=== PATIENT | male | born 2000 | race Caucasian/White ===

== ENCOUNTER 2020-06-24 19:48 | Emergency (ER) | payer OTHER, SELFPAY ==
--- NOTE | 2020-06-24 | ECG_ITS ---
Test Reason : CHEST PAIN Blood Pressure : / mmHG Vent. Rate : 093 BPM Atrial Rate : 093 BPM P-R Int : 124 ms QRS Dur : 088 ms QT Int : 336 ms P-R-T Axes : 028 025 -25 degrees QTc Int : 417 ms Normal sinus rhythm with sinus arrhythmia Nonspecific T wave abnormality Abnormal ECG No previous ECGs available Referred By: Generic ED Physician Electronically Signed By:NAY WANG
--- NOTE | 2020-06-24 20:21 | PC.NURSE ---
called for ekg
[2020-06-24 21:07] VITALS: BP 149/74; PULSE 99; RESP 18; TEMP 37.1; O2SAT 99; BMI 30.9
== END 2020-06-25 00:37 | disposition left against medical advice (07) ==
PROVIDERS: Emergency Provider Student in an Organized Health Care Education/Training Program
DX: R07.9 Chest pain, unspecified (principal)
CPT/HCPCS: 93005; 99282

== ENCOUNTER 2020-10-21 16:48 | Emergency (ER) | payer OTHER, SELFPAY ==
--- NOTE | ~2020-10-21 | XR_ITS ---
EXAMINATION: LEFT HAND AND LEFT SHOULDER CLINICAL INFORMATION: Shoulder and hand pain COMPARISON: None TECHNIQUE: 3 views left hand, 3 views left shoulder FINDINGS: Left hand: No bone joint or soft tissue abnormality is seen. Left shoulder: No bone joint or soft tissue abnormality is seen. XR/XR hand LT min 3V IMPRESSION: No significant abnormality is detected.
--- NOTE | ~2020-10-21 | XR_ITS ---
EXAMINATION: LEFT HAND AND LEFT SHOULDER CLINICAL INFORMATION: Shoulder and hand pain COMPARISON: None TECHNIQUE: 3 views left hand, 3 views left shoulder FINDINGS: Left hand: No bone joint or soft tissue abnormality is seen. Left shoulder: No bone joint or soft tissue abnormality is seen. XR/XR shoulder LT min 2V IMPRESSION: No significant abnormality is detected.
[2020-10-21 16:52] VITALS: BP 168/80; PULSE 122; O2SAT 99
[2020-10-21 16:57] VITALS: BP 136/84; PULSE 100; RESP 18; TEMP 37.2; O2SAT 97; BMI 29.2
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
== END 2020-10-21 18:21 | disposition home or self-care (01) ==
PROVIDERS: Emergency Provider Internal Medicine
DX: S43.402A Unspecified sprain of left shoulder joint, initial encounter (principal); S63.602A Unspecified sprain of left thumb, initial encounter; V43.52XA Car driver injured in collision with other type car in traffic accident, initial encounter; Y93.89 Activity, other specified; Y92.414 Local residential or business street as the place of occurrence of the external cause; Y99.9 Unspecified external cause status
CPT/HCPCS: 73030; 73130; 99283; 99284

== ENCOUNTER → 2020-10-30 10:34 | Outpatient (BNVA) | payer OTHER, MEDICAID, SELFPAY | PROVIDERS: Visit Provider Physician Assistant ==

== ENCOUNTER 2022-12-13 22:02 | Emergency (ER) | payer OTHER, SELFPAY ==
[2022-12-13 22:07] VITALS: BP 140/80; PULSE 84; RESP 16; TEMP 36.4; O2SAT 95; BMI 29.2
[2022-12-13 22:21] LABS: Basophils Percent Auto 0.5 % (0-2); Eosinophils Absolute Auto 0.1 X10*3/uL (0.0-0.4); Eosinophils Percent Auto 2.7 % (0-4); Hematocrit 47.9 % (42.0-52.0); Hemoglobin 15.9 g/dl (14.0-18.0); Imm Gran Abs Auto 0.03 X10*3/uL (0.00-0.03); Imm Gran Pct Auto 0.7 % (0.0-0.4); Lymphocytes Absolute Auto 1.4 X10*3/uL (1.2-4.9); Lymphocytes Percent Auto 33.4 % (20-40); MANUAL DIFF FLAG SCAN; Mean Corpuscular HGB Conc 33.2 g/dl (31.0-36.0); Mean Corpuscular Hemoglobin 27.7 pg (27.0-33.0); Mean Corpuscular Volume 83.6 fL (80.0-98.0); Mean Platelet Volume 9.6 fL (9.4-12.4); Monocytes Percent Auto 23.7 % (2-11); Neutrophils Absolute Auto 1.6 x10*3/uL (2.0-8.3); Platelet Count 232 X10*3/uL (160-400); Red Blood Count 5.73 X10*6/uL (4.60-5.80); Red Cell Distribution Width 11.9 % (11.0-16.0); SCAN SMEAR FLAG 1; White Blood Count 4.1 X10*3/uL (4.8-10.8)
[2022-12-13 22:49] LABS: Alanine Aminotransferase 23 U/L (0-40); Albumin Level 4.4 g/dL (3.5-5.0); Alkaline Phosphatase 71 U/L (39-117); Anion Gap 13 (12-20); Aspartate Amino Transferase 20 U/L (5-37); Bilirubin Total 0.4 mg/dL (0.0-1.0); Blood Urea Nitrogen 17 mg/dL (9-16); Calcium 9.6 mg/dL (8.4-10.2); Carbon Dioxide 24 mmol/L (22-29); Chloride 105 mmol/L (96-108); Creatinine Clr Calc Pharmacy 111.3; Estimated Glomerular Filt Rate > 60; Glucose Random 85 mg/dL (60-115); Lipase 17 U/L (8-78); Potassium 3.9 mmol/L (3.3-5.1); Sodium 138 mmol/L (135-145); Total Protein 7.6 g/dL (6.5-8.0)
[2022-12-13 22:54] LABS: SLIDE REVIEW VERIFIED
--- NOTE | 2022-12-13 23:37 | ED.GENADULT ---
HPI - General Adult General Chief complaint: Nausea/Vomiting/Diarrhea Stated complaint: abd pain Time Seen by Provider: 12/13/22 23:37 Source: patient Mode of arrival: ambulatory Limitations: no limitations History of Present Illness HPI narrative: Patient is a 22 year old assigned male at with no reported medical history presenting to the emergency department today with diarrhea and abdominal pain. Patient states that over the last 2 days he has had intermittent diarrhea and lower abdominal pain. Patient states that his pain is much better than it was and his diarrhea has now resolved. Patient denies any dizziness, lightheadedness, nausea, vomiting, fever, chills, blurry vision, double vision, loss of vision, chest pain, difficulty breathing, shortness of breath, back pain, night sweats, pain with urination, increased urinary frequency, increased urinary urgency, blood in his urine or stool, syncope or a near syncopal episode, recent trauma or falls, bowel incontinence, bladder incontinence, bowel retention, bladder retention, or any other complaints at this time. Onset (ago): day(s) (2) Location: abdomen Radiation: non-radiation Severity: mild Severity scale (1-10): 2 Quality: aching and dull Pain Consistency: intermittent Relieving factors: none Exacerbating factors: none Associated symptoms: denies other symptoms Treatments prior to arrival: none Related Data Previous Rx's Medication Instructions Recorded ibuprofen 600 mg tablet 600 mg PO Q6H PRN pain #20 tabs 10/21/20 Allergies Allergy/AdvReac Type Severity Reaction Status Date / Time fish derived [FISH] Allergy Unknown SWELLING Verified 12/13/22 22:06 Review of Systems Constitutional: Constitutional: Reports no additional constitutional complaints, Denies chills, Denies fever(s) and Denies night sweats Eyes: Eyes: Reports no additional eye complaints, Denies blurry vision, Denies change in vision, Denies diplopia, Denies eye discharge, Denies loss of vision and Denies eye pain ENT: Denies dizziness Cardiovascular: Cardiovascular: Reports no additional cardiovascular complaints, Denies chest pain, Denies lightheadedness, Denies Loss of Consciousness and Denies dyspnea Respiratory: Respiratory: Reports no additional respiratory complaints and Denies dyspnea Gastrointestinal: Gastrointestinal: Reports no additional gastrointestinal complaints, Reports abdominal pain, Denies melena, Denies hematochezia, Denies change in bowel habits, Denies change in stool character and Reports diarrhea Genitourinary: Genitourinary: Reports no additional male genitourinary complaints, Denies hematuria, Denies oliguria, Denies difficulty urinating, Denies dysuria, Denies urinary frequency, Denies urinary hesitancy, Denies urinary incontinence and Denies urinary urgency Musculoskeletal: Musculoskeletal: Reports no additional musculoskeletal complaints, Denies numbness and Denies tingling Neurologic: Denies dizziness, Denies loss of vision, Denies numbness and Denies tingling Psychiatric: Psychiatric: Reports no additional psychiatric complaints Endocrine: Endocrine: Reports no additional endocrine complaints Hematologic/Lymphatic: Hematologic/Lymphatic: Reports no additional hematologic/lymphatic complaints Allergic/Immunologic: Allergic/Immunologic: Reports no additional allergic/immunologic complaints PMFSH Past Medical History Attestation statement: The following information was validated with the patient. Source: old records reviewed and nursing notes reviewed Medical History No known health problems Social History Social History Alcohol intake: never Advance Directives: No Advance Directives Information Provided: No Current occupation: right handed. Physical Exam ED Vital Signs: Vital Signs - 24 hr 12/13/22 22:07 Temperature 97.6 F Pulse Rate 84 Respiratory Rate 16 Blood Pressure 140/80 H Pulse Oximetry 95 Oxygen Delivery Method Room Air BMI result Body Mass Index 29.2 Const General: cooperative, no acute distress, alert and awake Nutritional Appearance: well nourished Orientation/consciousness: patient oriented x3 Limitations: no limitations [facility] Head: Yes normal to inspection and Yes atraumatic Ears: hearing grossly normal bilaterally and external ears normal General nose exam: Normal external nose present, no nasal discharge noted and no epistaxis Face and sinus: Yes normal facial exam, No abrasion and No laceration Mouth: Normal oral and palatal mucosa present, no drooling and no muffled voice Eyes General: appearance normal, both eyes and all related structures Periorbital: periorbital findings normal Eyelids: Yes eyelids normal Conjunctivae: conjunctivae normal Pupils: Equal, round and reactive pupils present EOM: EOMs intact bilaterally Neck Neck: Yes normal visual inspection, Yes full ROM and Yes no lymphadenopathy Chest Chest palpation & inspection: normal inspection of the chest Resp Effort & Inspection: normal respiratory effort and able to speak in complete sentences GI Inspection: Yes normal to inspection Palpation (GI): Soft to palpation, not firm, nontender, no guarding and not rigid Neuro General: patient oriented x3 and moves all extremities Cranial nerves: Yes Equal, round and reactive pupils present Cognition (Neuro): normal cognition Motor exam (neuro): 5/5 motor strength present throughout Sensory Exam: Normal double simultaneous stimulation for sensation Coordination: [id number] test normal Extrem General: Yes normal to inspection, Yes full ROM and Yes capillary refill normal Psych Appearance: grossly normal Mental Status: mental status grossly normal Affect: normal affect Attitude: cooperative Thought process: Normal thought process present Thought content: Normal thought content present Insight: Good insight present (Psych) Medical Decision Making Medical Decision Making MDM Narrative: Patient is a 22 year old assigned male at with no reported medical history presenting to the emergency department today with intermittent abdominal pain and diarrhea. Patient's physical exam was unremarkable. Patient's blood work was unremarkable. I explained my physical exam findings as well as all test results to the patient. I answered all questions asked by the patient. I stressed the importance of the patient taking his medication as prescribed. I stressed the importance of the patient following up with his primary care provider. I stressed the importance of the patient returning to the emergency department immediately if his symptoms were to worsen or if he were to develop any dizziness, shortness of breath, difficulty breathing, chest pain, blurry vision, loss of vision, nausea, vomiting, abdominal pain, fever, chills, back pain, or any other complaints. Patient verbalized agreement and understanding with this treatment plan and discharge. Differential Diagnosis Differential Diagnoses: The differential diagnosis associated with the presentation includes diarrhea, gastroenteritis Admission/Observation Consideration of admission/observation: Escalation of care including admission/observation considered Patient would have been admitted to the hospital had his work up had any findings where hospital admission was appropriate. Lab Data MDM Lab Attestation statement: I reviewed the patient's lab results. My interpretation of these studies and their corresponding values is that they are grossly normal. 12/13/22 22:15 12/13/22 22:15 Labs: Lab Results 12/13/22 12/13/22 Range/Units 22:15 22:15 WBC 4.1 L (4.8-10.8) X10*3/uL RBC 5.73 (4.60-5.80) X10*6/uL Hgb 15.9 (14.0-18.0) g/dl Hct 47.9 (42.0-52.0) % MCV 83.6 (80.0-98.0) fL MCH 27.7 (27.0-33.0) pg MCHC 33.2 (31.0-36.0) g/dl RDW 11.9 (11.0-16.0) % Plt Count 232 (160-400) X10*3/uL MPV 9.6 (9.4-12.4) fL Immature Gran % (Auto) 0.7 H (0.0-0.4) % Neut % (Auto) 39.0 L (45-73) % Lymph % (Auto) 33.4 (20-40) % [place] % (Auto) 23.7 H (2-11) % Eos % (Auto) 2.7 (0-4) % Baso % (Auto) 0.5 (0-2) % Lymph # (Auto) 1.4 (1.2-4.9) X10*3/uL [place] # (Auto) 1.0 (0.1-1.2) X10*3/uL Eos # (Auto) 0.1 (0.0-0.4) X10*3/uL Baso # (Auto) 0.0 (0.0-0.2) X10*3/uL Abs Immat Gran (auto) 0.03 (0.00-0.03) X10*3/uL Absolute Neuts (auto) 1.6 L (2.0-8.3) x10*3/uL Absolute Nucleated RBC 0.000 (0.0-0.012) X10*3/uL Nucleated RBC % (auto) 0.0 (0.0-0.2) /100WBC Smear Tech's Comments VERIFIED Sodium 138 (135-145) mmol/L Potassium 3.9 (3.3-5.1) mmol/L Chloride 105 (96-108) mmol/L Carbon Dioxide 24 (22-29) mmol/L Anion Gap 13 (12-20) BUN 17 H (9-16) mg/dL Creatinine 0.96 (0.5-1.4) mg/dL Estim Creat Clear Calc 111.3 Estimated GFR > 60 Random Glucose 85 (60-115) mg/dL Calcium 9.6 (8.4-10.2) mg/dL Total Bilirubin 0.4 (0.0-1.0) mg/dL AST 20 (5-37) U/L ALT 23 (0-40) U/L Alkaline Phosphatase 71 (39-117) U/L Total Protein 7.6 (6.5-8.0) g/dL Albumin 4.4 (3.5-5.0) g/dL Lipase 17 (8-78) U/L Discharge Plan Discharge Clinical Impression: Gastroenteritis Patient Disposition: Home, Self-Care Instructions: Gastroenteritis (DC) Additional Instructions: Follow up with your primary care provider. Return to the emergency department immediately if your symptoms worsen or if you develop any dizziness, shortness of breath, difficulty breathing, chest pain, blurry vision, loss of vision, nausea, vomiting, abdominal pain, fever, chills, back pain, or any other complaints. Prescriptions: No Action ibuprofen 600 mg tablet 600 mg PO Q6H PRN (Reason: pain) Qty: 20 0RF Referrals: [facility] [Provider Group] (Call to establish and follow up with a primary care provider. If you already have a primary care provider, please follow up with them.) [facility] [Provider Group] (Call to establish and follow up with a primary care provider. If you already have a primary care provider, please follow up with them.) [facility] [Provider Group] (Call to establish and follow up with a primary care provider. If you already have a primary care provider, please follow up with them.) Stand Alone Forms: Work/School Release Print Language: Indian
== END 2022-12-14 00:02 | disposition home or self-care (01) ==
PROVIDERS: Emergency Provider Emergency Medicine
DX: K52.9 Noninfective gastroenteritis and colitis, unspecified (principal); R10.30 Lower abdominal pain, unspecified
CPT/HCPCS: 36415; 80053; 83690; 85025; 99283; 99284

== ENCOUNTER 2023-01-04 11:04 | Emergency (ER) | payer OTHER, SELFPAY ==
[2023-01-04 11:37] VITALS: BP 117/73; PULSE 100; RESP 19; TEMP 36.6; O2SAT 100; BMI 29.2
--- NOTE | 2023-01-04 13:14 | ED.GENADULT ---
HPI - General Adult General Chief complaint: Wound/Laceration Stated complaint: Rectal pain Time Seen by Provider: 01/04/23 13:13 Source: patient Mode of arrival: ambulatory Limitations: no limitations History of Present Illness HPI narrative: Patient is a 22 year old assigned male at with no reported medical history presenting to the emergency department today with a lump on his upper buttocks. Patient states that over the last few days he noticed this bump over his buttock has continued to get bigger and more painful. Patient denies any dizziness, lightheadedness, abdominal pain, nausea, vomiting, fever, chills, blurry vision, double vision, loss of vision, chest pain, difficulty breathing, shortness of breath, back pain, night sweats, pain with urination, increased urinary frequency, increased urinary urgency, blood in his urine or stool, syncope or a near syncopal episode, recent trauma or falls, bowel incontinence, bladder incontinence, bowel retention, bladder retention, or any other complaints at this time. Onset (ago): day(s) Location: buttocks Radiation: non-radiation Severity: mild Severity scale (1-10): 3 Quality: aching and dull Pain Consistency: constant Relieving factors: none Exacerbating factors: none Associated symptoms: denies other symptoms Treatments prior to arrival: none Related Data Previous Rx's Medication Instructions Recorded ibuprofen 600 mg tablet 600 mg PO Q6H PRN pain #20 tabs 10/21/20 cephalexin 500 mg capsule 500 mg PO Q6H 7 days #28 caps 01/04/23 Allergies Allergy/AdvReac Type Severity Reaction Status Date / Time fish derived [FISH] Allergy Unknown SWELLING Verified 01/04/23 11:37 Review of Systems Constitutional: Constitutional: Reports no additional constitutional complaints, Denies chills, Denies fever(s) and Denies night sweats Eyes: Eyes: Reports no additional eye complaints, Denies blurry vision, Denies change in vision, Denies diplopia, Denies eye discharge, Denies loss of vision and Denies eye pain ENT: Denies dizziness Cardiovascular: Cardiovascular: Reports no additional cardiovascular complaints, Denies chest pain, Denies lightheadedness, Denies Loss of Consciousness and Denies dyspnea Respiratory: Respiratory: Reports no additional respiratory complaints and Denies dyspnea Gastrointestinal: Gastrointestinal: Reports no additional gastrointestinal complaints, Denies abdominal pain, Denies melena, Denies hematochezia, Denies change in bowel habits and Denies change in stool character Genitourinary: Genitourinary: Reports no additional male genitourinary complaints, Denies hematuria, Denies oliguria, Denies difficulty urinating, Denies dysuria, Denies urinary frequency, Denies urinary hesitancy, Denies urinary incontinence and Denies urinary urgency Musculoskeletal: Musculoskeletal: Reports no additional musculoskeletal complaints, Denies numbness and Denies tingling Integumentary/Breasts: Comments: swelling and pain to the upper buttock Neurologic: Denies dizziness, Denies loss of vision, Denies numbness and Denies tingling Psychiatric: Psychiatric: Reports no additional psychiatric complaints Endocrine: Endocrine: Reports no additional endocrine complaints Hematologic/Lymphatic: Hematologic/Lymphatic: Reports no additional hematologic/lymphatic complaints Allergic/Immunologic: Allergic/Immunologic: Reports no additional allergic/immunologic complaints PMFSH Past Medical History Attestation statement: The following information was validated with the patient. Source: old records reviewed and nursing notes reviewed Medical History No known health problems Social History Social History Alcohol intake: never Advance Directives: No Advance Directives Information Provided: Yes Current occupation: right handed. Physical Exam ED Vital Signs: Vital Signs - 24 hr 01/04/23 11:37 Temperature 98 F Pulse Rate 100 Respiratory Rate 19 Blood Pressure 117/73 Pulse Oximetry 100 Oxygen Delivery Method Room Air BMI result Body Mass Index 29.2 Const General: cooperative, no acute distress, alert and awake Nutritional Appearance: well nourished Orientation/consciousness: patient oriented x3 Limitations: no limitations [facility] Head: Yes normal to inspection and Yes atraumatic Ears: hearing grossly normal bilaterally and external ears normal General nose exam: Normal external nose present, no nasal discharge noted and no epistaxis Face and sinus: Yes normal facial exam, No abrasion and No laceration Mouth: Normal oral and palatal mucosa present, no drooling and no muffled voice Eyes General: appearance normal, both eyes and all related structures Periorbital: periorbital findings normal Eyelids: Yes eyelids normal Conjunctivae: conjunctivae normal Pupils: Equal, round and reactive pupils present EOM: EOMs intact bilaterally Neck Neck: Yes normal visual inspection, Yes full ROM and Yes no lymphadenopathy Chest Chest palpation & inspection: normal inspection of the chest Resp Effort & Inspection: normal respiratory effort and able to speak in complete sentences GI Inspection: Yes normal to inspection Skin Full body images: 1. small area of fluctuance, erythema, warmth, and swelling Neuro General: patient oriented x3 and moves all extremities Cranial nerves: Yes Equal, round and reactive pupils present Cognition (Neuro): normal cognition Motor exam (neuro): 5/5 motor strength present throughout Sensory Exam: Normal double simultaneous stimulation for sensation Coordination: [id number] test normal Extrem General: Yes normal to inspection, Yes full ROM and Yes capillary refill normal Psych Appearance: grossly normal Mental Status: mental status grossly normal Affect: normal affect Attitude: cooperative Thought process: Normal thought process present Thought content: Normal thought content present Insight: Good insight present (Psych) Medications Administered Discontinued Medications Generic Name Dose Route Start Last Admin Trade Name Freq PRN Reason Stop Dose Admin Lidocaine HCl 5 ml 01/04/23 13:22 01/04/23 13:26 Lidocaine Hcl 1 % Mpf 5 Ml Vial SUBCUT 01/04/23 13:23 5 ml ONCE ONE Administration Medical Decision Making Medical Decision Making MDM Narrative: Patient is a 22 year old assigned male at with no reported medical history presenting to the emergency department today with a lump to his upper buttock. Patient's physical exam was as noted in the physical exam portion of this chart showing an obvious pilonidal abscess. I explained my physical exam findings to the patient. I answered all questions asked by the patient. Patient's abscess was incised and drained, per procedure note, without incident. Minimal pus was released. I stressed the importance of the patient taking his medication as prescribed. I stressed the importance of the patient following up with his primary care provider and a general surgeon. I stressed the importance of the patient returning to the emergency department immediately if his symptoms were to worsen or if he were to develop any dizziness, shortness of breath, difficulty breathing, chest pain, blurry vision, loss of vision, nausea, vomiting, abdominal pain, fever, chills, back pain, or any other complaints. Patient verbalized agreement and understanding with this treatment plan and discharge. Differential Diagnosis Differential Diagnoses: The differential diagnosis associated with the presentation includes Pilonidal abscess Cellulitis Prescription Management I considered prescription management with: Antibiotic (patient prescribed antibiotic) Discharge Plan Discharge Clinical Impression: Pilonidal abscess Patient Disposition: Home, Self-Care Instructions: Pilonidal Cyst (ED), Abscess (ED) Additional Instructions: Follow up with your primary care provider and a general surgeon. Apply warm compresses to the area. Follow up with a general surgeon. Return to the emergency department immediately if your symptoms worsen or if you develop any dizziness, shortness of breath, difficulty breathing, chest pain, blurry vision, loss of vision, nausea, vomiting, abdominal pain, fever, chills, back pain, or any other complaints. Prescriptions: New cephalexin 500 mg capsule 500 mg PO Q6H 7 Days Qty: 28 0RF No Action ibuprofen 600 mg tablet 600 mg PO Q6H PRN (Reason: pain) Qty: 20 0RF [place] [facility] [place]Provider Group] (Call to establish and follow up with a general surgeon.) [facility] [place] Family Medicine [Provider Group] (Call to establish and follow up with a primary care provider. If you already have a primary care provider, please follow up with them.) [facility] [place] Primary Care[facility] [Provider Group] (Call to establish and follow up with a primary care provider. If you already have a primary care provider, please follow up with them.) [facility] [place] Primary Care,[facility] [Provider Group] (Call to establish and follow up with a primary care provider. If you already have a primary care provider, please follow up with them.) Stand Alone Forms: Work/School Release Interventions: ED Discharge Assessment Last Done: 01/04/23 14:10 Discharge Date/Time: 01/04/23 14:11 Print Language: Lithuanian
== END 2023-01-04 14:11 | disposition home or self-care (01) ==
PROVIDERS: Emergency Provider Emergency Medicine
DX: L05.01 Pilonidal cyst with abscess (principal); Z79.899 Other long term (current) drug therapy
CPT/HCPCS: 99282; 99284

== ENCOUNTER 2023-01-07 08:35 | Outpatient (AMB) | payer OTHER, SELFPAY ==
[2023-01-07 08:37] VITALS: BP 128/68; PULSE 79; BMI 27.6
--- NOTE | 2023-01-07 08:37 | A.OFFVIS_ITS ---
Intake Vital Signs 01/07/23 08:37 Height 5 ft 4 in Weight 161 lb BMI 27.6 BP 128/68 Blood Pressure Location Rt brachial Position Sitting Pulse 79 Intake Visit Reasons: pilonidal abscess Intake Note: This patient presents for [facility] emergency department follow-up for pilonidal abscess. Patient c/o; describes moderate pain, draining, has not started abx yet. 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 He has had this pain and swelling on the sacrococcygeal area for almost a week. He says he went to the ER 4 days ago. He says that an I and D was done but he was told that this was not enough. He has persistent pain and swelling on the area. He denies any fever or chills. He says he has had no similar episodes in the past. [facility] Medical History No known health problems Social History Alcohol intake: never Current occupation: right handed. Review of Systems Const Denies chills and Denies fever(s) Card Denies chest pain, Denies dyspnea and Denies dyspnea on exertion Resp Denies cough, Denies dyspnea and Denies dyspnea on exertion GI Denies hematochezia and Denies change in bowel habits Denies hematuria and Denies difficulty urinating Musc Denies back pain and Denies limited range of motion Neuro Denies focal weakness and Denies convulsions Psych Denies depression and Denies mood swings Physical Exam Const General: comfortable and no acute distress Orientation/consciousness: patient oriented x3 Neck Neck: Yes no lymphadenopathy Resp Auscultation: clear to auscultation bilaterally Cardio Rhythm: regular rhythm GI Palpation (GI): Soft to palpation, nontender and no guarding Back/Spine/Pelvis Other: Very tender induration, about 3 cm on the sacrococcygeal area to the left of the midline, no open sinus or drainage at this time Neuro General: patient oriented x3 Office Procedures I&D Drain Details: He was in prone position. Care was prepped and draped. Lidocaine 1% was used generously. I made a cruciate incision on the skin using blade 11. This was deepened as the cavity was not superficial. Fluid was drained this a and this appeared to be her purulent. I used a mustache to open up more of the cavity. I applied a light packing and dressings. He tolerated procedure well. There were no immediate complications. There was minimal blood loss. [id number] of Pilonidal Cyst, complex All charges added?: Procedure code (CPT) selection complete Assessment & Plan Assessment & Plan (1) Pilonidal abscess: Code(s): L05.01 - Pilonidal cyst with abscess Plan: He understands the technique of the incision and drainage under local anesthesia. He he was aware of the risks including but not limited to bleeding, infections, poor healing, as well as the benefits and alternatives. He had given consent. I and D was done under local anesthesia. There was fluid collection deep in the subcutaneous layer. I applied a light packing. I instructed him on wound care. I will see him in the office next week. He understands that we may need to proceed with formal excision down the line. I instructed him on warm compresses to the area and dressing changes. He is to complete his course of oral antibiotics as prescribed by the ED. Coding Level of Care Code New Pt Level 3 (11964) Diagnoses Pilonidal abscess L05.01 CPT Codes I&D Drain - Drain 4: [id number] of Pilonidal Cyst, complex ([id number])
== END 2023-01-07 09:04 | disposition home or self-care (01) ==
PROVIDERS: Visit Provider Surgery
DX: L05.01 Pilonidal cyst with abscess (principal)
CPT/HCPCS: 10081; 99203

== ENCOUNTER → 2023-01-07 08:35 | Outpatient (BNVA) | payer OTHER, SELFPAY | PROVIDERS: Visit Provider Surgery | DX: L05.01 Pilonidal cyst with abscess (principal) | CPT/HCPCS: 10081; 99202 ==

== ENCOUNTER 2023-01-14 13:39 | Outpatient (AMB) | payer OTHER, SELFPAY ==
--- NOTE | 2023-01-14 13:40 | A.OFFVIS_ITS ---
Intake Vital Signs 01/14/23 13:46 Height 5 ft 4 in Weight 165 lb BMI 28.3 BP 137/80 Blood Pressure Location Rt brachial Position Sitting Pulse 95 Intake Visit Reasons: s/p I&D pilonidal abscess, 1 week follow up Intake Note: This patient presents for a one week follow-up status post I&D pilonidal abscess. Patient denies complaints at this time. Distribution Sales Representative Required: No Accompanied by: Self / Same As Patient Allergies fish derived [FISH] Allergy (Unknown, Verified 01/14/23 13:47) SWELLING Medication List - Last Reconciled 01/14/23 by Billy Iverson MD cephalexin 500 mg PO Q6H 7 days ibuprofen 600 mg PO Q6H PRN HPI s/p I&D pilonidal abscess, 1 week follow up HPI Details 22-year-old males here for follow-up for a pilonidal abscess. I had done an I and D pilonidal abscess last January 07, 2023. He says he feels much better although he still has some residual pain . He denies any significant drainage from the I&D site. He does state that he feels much better overall. [facility] Medical History (Updated 01/14/23 @ 13:58 by Billy Iverson MD) No known health problems Sacrococcygeal pilonidal cyst with abscess Surgical History History of removal of cyst (~01/07/23) Social History Alcohol intake: never Current occupation: right handed. Review of Systems Const Denies chills and Denies fever(s) Card Denies chest pain, Denies dyspnea and Denies dyspnea on exertion Resp Denies cough, Denies dyspnea and Denies dyspnea on exertion GI Denies hematochezia and Denies change in bowel habits Denies hematuria and Denies difficulty urinating Musc Denies back pain and Denies limited range of motion Neuro Denies focal weakness and Denies convulsions Psych Denies depression and Denies mood swings Physical Exam Vital Signs: Last Vital Signs Pulse 95 01/14/23 13:46 BP 137/80 01/14/23 13:46 BMI result Body Mass Index 28.3 Const General: comfortable and no acute distress Resp Effort & Inspection: normal respiratory effort Cardio Rate: regular rate Back/Spine/Pelvis Other: I&D site with a little bit of residual induration, no fluctuance, no significant cellulitis, no active drainage Assessment & Plan Assessment & Plan (1) Sacrococcygeal pilonidal cyst with abscess: Code(s): L05.01 - Pilonidal cyst with abscess Plan: He had undergone an I&D last week. There was note of significant improvement. He still has a little bit of residual induration. I did tell him that it may be best to proceed with formal excision. I explained to the technique of this procedure under anesthesia in the operating room. I reviewed the risks including but not limited to bleeding, infections, poor healing, as well as the benefits and alternatives. He says that he is considering this but would like to discuss this with his work as he just started with this new job. He says he will call the office once he feels ready to schedule. He understands the risks of recurrence without excision. Coding Level of Care Code Est Pt Level 2 (95722) Diagnoses Sacrococcygeal pilonidal cyst with abscess L05.01
[2023-01-14 13:46] VITALS: BP 137/80; PULSE 95; BMI 28.3
== END 2023-01-14 13:56 | disposition home or self-care (01) ==
PROVIDERS: Visit Provider Surgery
DX: L05.01 Pilonidal cyst with abscess (principal)
CPT/HCPCS: 99212

== ENCOUNTER → 2023-01-14 13:39 | Outpatient (BNVA) | payer OTHER, SELFPAY | PROVIDERS: Visit Provider Surgery | DX: Z87.2 Personal history of diseases of the skin and subcutaneous tissue (principal) | CPT/HCPCS: 99212 ==

== ENCOUNTER 2024-05-08 09:06 | Emergency (ER) | payer OTHER, SELFPAY ==
[2024-05-08 09:18] VITALS: BP 131/85; PULSE 91; RESP 20; TEMP 36.6; O2SAT 98; BMI 29.1
--- NOTE | 2024-05-08 11:52 | ED_ITS ---
HPI - General Adult General Chief complaint: Skin/Abscess/Foreign Body Stated complaint: Lump on back Time Seen by Provider: 05/08/24 11:51 Source: patient Mode of arrival: ambulatory Limitations: no limitations History of Present Illness ED Provider: Mariah HPI narrative: Patient is a 23-year-old male presenting to the emergency department with complaint of pain and swelling at the top of his gluteal cleft. Reports prior I&D with Dr. Iverson in the past. Denies spontaneous drainage. Denies fevers, chills, body aches. complaint: pilonidal cyst Onset (ago): day(s) Severity: severe Quality: aching Pain Consistency: constant Associated symptoms: denies other symptoms Treatments prior to arrival: none Related Data Previous Rx's ?Medication ?Instructions ?Recorded ibuprofen 600 mg tablet 600 mg PO Q6H PRN pain #20 tabs 10/21/20 cephalexin 500 mg capsule 500 mg PO Q6H 7 days #28 caps 01/04/23 cephalexin 500 mg capsule 500 mg PO QID #28 caps 05/08/24 Allergies Allergy/AdvReac Type Severity Reaction Status Date / Time fish derived [FISH] Allergy Unknown SWELLING Verified 05/08/24 09:19 Review of Systems 2 Review of Systems: As per HPI Yes all other systems are reviewed and are negative Constitutional: Constitutional: Reports as per HPI [facility] Past Medical History Medical History (Updated 05/08/24 @ 12:17 by Katharine Lemus NP) Sacrococcygeal pilonidal cyst with abscess No known health problems Surgical History History of removal of cyst (~01/07/23) Social History Social History Alcohol intake: never Advance Directives: No Advance Directives Information Provided: Yes Do you have a plan to hurt others: No Plan Current occupation: right handed. Physical Exam ED Vital Signs: Vital Signs - 24 hr 05/08/24 09:18 Temperature 97.8 F Pulse Rate 91 Respiratory Rate 20 Blood Pressure 131/85 Pulse Oximetry 98 Oxygen Delivery Method Room Air BMI result Body Mass Index 29.1 Vital signs have been reviewed and appear to be correct. Blood pressure normal. Heart rate normal. Respiratory rate normal. Temperature normal. Oxygen saturation normal. Const General: cooperative, healthy appearing and no acute distress Orientation/consciousness: oriented to person, oriented to place, oriented to time and patient oriented x3 Limitations: no limitations HENMT Head: Yes normocephalic and Yes atraumatic Ears: external ears normal General nose exam: Normal external nose present Face and sinus: Yes face symmetric Mouth: oropharynx normal and moist mucous membranes Throat: Yes uvula midline Eyes Pupils: Equal, round and reactive pupils present Neck Neck: Yes normal visual inspection and Yes supple Resp Effort & Inspection: normal respiratory effort and able to speak in complete sentences Auscultation: clear to auscultation bilaterally Cardio Rate: regular rate Rhythm: regular rhythm Heart sounds: S1 normal heart sound present and S2 normal heart sound present GI Palpation (GI): Soft to palpation and nontender Auscultation: normoactive bowel sounds General: Yes no CVA tenderness Back/Spine/Pelvis Back: no CVA tenderness Skin Other: Exam chaperoned by KODAK [place] General skin exam: elasticity normal and turgor normal Full body images: 2 1. incision scar to left of gluteal cleft, induration and erythema noted, L>R, no fluctuance or drainage Neuro General: oriented to person, oriented to place, oriented to time, patient oriented x3, moves all extremities, no focal motor deficits and CN's II-XI intact bilaterally Cranial nerves: Yes Equal, round and reactive pupils present Cognition (Neuro): normal cognition Extrem General: Yes full ROM, Yes no pedal edema and Yes no calf tenderness Psych Mental Status: mental status grossly normal Affect: normal affect Thought process: Normal thought process present Medical Decision Making Medical Decision Making MDM Narrative: Patient is a 23-year-old male presenting to the emergency department with complaint of pain and swelling at the top of his gluteal cleft. On exam patient is awake, A+Ox3, VS WNL, afebrile, normal neurological exam without focal deficits, physical exam findings as above. Given reported symptoms and physical exam findings, initial differential includes abscess, pilonidal cyst, cellulitis. No induration on physical exam, I&D not indicated at this time. Will start patient on antibiotics and refer to Dr. Iverson. Discussed with patient that until he has cyst surgically removed, he can continue to have a recurrence of infection. Patient verbalized understanding of this and would like to follow up with Dr. Iverson for surgery. Return precautions discussed. Patient verbalized understanding of and agreement with plan. Differential Diagnosis Differential Diagnoses: The differential diagnosis associated with the presentation includes As per [facility] External Record Review External record reviewed: Inpatient record, Office record and Outpatient record Prescription Management I considered prescription management with: Antibiotic Discharge Plan Discharge Clinical Impression: Sacrococcygeal pilonidal cyst with abscess Patient Disposition: Home, Self-Care Instructions: Pilonidal Cyst (ED), Pilonidal Cyst Excision (DC) Additional Instructions: You were evaluated in the emergency department for an infection of your pilonidal cyst. You are being treated with a course of antibiotics, complete the full course as prescribed even if symptoms improve. We also recommend soaking the area in warm water for 10-15 minutes at a time several times daily. As discussed, until this cyst is surgically removed, these infections can continue to occur. Follow-up with Dr. Iverson to discuss excision (removal) of the cyst. Return to the emergency department if you develop increased swelling, redness, fevers or any other concerning symptoms. Prescriptions: New cephalexin 500 mg capsule 500 mg PO QID Qty: 28 0RF No Action ibuprofen 600 mg tablet 600 mg PO Q6H PRN (Reason: pain) Qty: 20 0RF cephalexin 500 mg capsule 500 mg PO Q6H 7 Days Qty: 28 0RF Referrals: Billy Iverson MD [Physician] - Print Language: South Korean
[2024-05-08 12:38] VITALS: BP 131/85; PULSE 91; RESP 20; TEMP 36.6; O2SAT 98
== END 2024-05-08 12:38 | disposition home or self-care (01) ==
PROVIDERS: Emergency Provider Emergency Medicine
DX: L05.01 Pilonidal cyst with abscess (principal)
CPT/HCPCS: 99282; 99283

== ENCOUNTER 2024-05-10 09:39 | Outpatient (AMB) | payer OTHER, SELFPAY ==
[2024-05-10 09:45] VITALS: BMI 29.1
--- NOTE | 2024-05-10 09:45 | MHC.OFFVIS ---
Vital Signs 05/10/24 09:45 Height 5 ft 5 in Weight 175 lb 0.012 oz BMI 29.1 Intake Visit Reasons: recurrent pilonidal cyst Intake Note: This patient presents for recurrent pilonidal cyst. Pt c/o; reports when he went to the ER on 05/08/24 his pain level was 10/10, reports since he has been taking his antibiotics his pain has improved. 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 I had actually seen him last year for this. In view of his current swelling, pain and drainage, had recommended excision in the operating room. He did want this done yet at that time because just started on a new job. He has had continuing problems so he wants to proceed schedule this excision. He said he was just recently started on antibiotics because of swelling. He denies any discharge. [facility] Medical History Sacrococcygeal pilonidal cyst with abscess No known health problems Surgical History History of removal of cyst (~01/07/23) Social History Alcohol intake: never Current occupation: right handed. Review of Systems Const Denies chills and Denies fever(s) Card Denies chest pain, Denies dyspnea and Denies dyspnea on exertion Resp Denies cough, Denies dyspnea and Denies dyspnea on exertion GI Denies hematochezia and Denies change in bowel habits Denies hematuria and Denies difficulty urinating Musc Denies back pain and Denies limited range of motion Neuro Denies focal weakness and Denies convulsions Psych Denies depression and Denies mood swings Physical Exam Vital Signs: BMI result Body Mass Index 29.1 Const General: comfortable and no acute distress Orientation/consciousness: patient oriented x3 Neck Neck: Yes no lymphadenopathy Resp Auscultation: clear to auscultation bilaterally Cardio Rhythm: regular rhythm GI Palpation (GI): Soft to palpation, nontender and no guarding Back/Spine/Pelvis Other: Induration with tenderness, about 2.5 cm to the left of the midline, without fluctuance, on the sacrococcygeal area consistent with a pilonidal cyst Neuro General: patient oriented x3 Assessment & Plan Assessment & Plan (1) Sacrococcygeal pilonidal cyst with abscess: Code(s): L05.01 - Pilonidal cyst with abscess Category: Medical Plan: He has this sacrococcygeal pilonidal cyst with recurrent problems with swelling, discharge and pain. I reviewed technique of excision of the pilonidal cyst under anesthesia. I explained the risks including but not limited to bleeding, infections, poor healing, postop pain, as well as the benefits and alternatives. I also explained to him what to expect postoperatively He says he understands and wants to proceed this time. Coding Level of Care Code Est Pt Level 3 (08704) Diagnoses Sacrococcygeal pilonidal cyst with abscess L05.01
== END 2024-05-10 09:56 | disposition home or self-care (01) ==
PROVIDERS: PCP Internal Medicine; Visit Provider Surgery
DX: L05.01 Pilonidal cyst with abscess (principal)
CPT/HCPCS: 99213

== ENCOUNTER → 2024-05-10 09:39 | Outpatient (BNVA) | payer OTHER, SELFPAY | PROVIDERS: PCP Internal Medicine; Visit Provider Surgery | DX: L05.01 Pilonidal cyst with abscess (principal) | CPT/HCPCS: 99212 ==

== ENCOUNTER 2024-06-12 09:51 | Outpatient (AMB) | payer OTHER, SELFPAY ==
--- NOTE | 2024-06-12 09:52 | MHC.OFFVIS ---
Vital Signs 06/12/24 09:59 Height 5 ft 5 in Weight 183 lb BMI 30.4 BP 148/80 H Blood Pressure Location Rt brachial Position Sitting Pulse 78 Intake Visit Reasons: pilonidal cyst recurrence Intake Note: Patient here c/o pilonidal cyst. Reports oozing for 2d. Ran out of Cephalexin rx. 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 He was recently given antibiotics for inflammation and presents here for further evaluation. He has had prior bouts of this before in fact has required incision and drainage in the past. Patient was scheduled to see his medical doctor for clearance on July 07. He would like to have this surgery for pilonidal cyst excision because of recurrence of his symptoms. Chart was reviewed and patient evaluated [facility] Medical History Sacrococcygeal pilonidal cyst with abscess No known health problems Surgical History History of removal of cyst (~01/07/23) Social History Alcohol intake: never Current occupation: right handed. Physical Exam Vital Signs: Last Vital Signs Pulse 78 06/12/24 09:59 BP 148/80 H 06/12/24 09:59 BMI result Body Mass Index 30.4 Chest Other: Chest breath sounds bilaterally, HS 1 in 2 GI Other: Abdomen is soft, benign Back/Spine/Pelvis Other: Pilonidal disease of cleft. No evidence of any active infection. Old scar from prior I&D site. No evidence of any redness or fluctuance at this time. Assessment & Plan Assessment & Plan (1) Pilonidal cyst of cleft: Code(s): L05.91 - Pilonidal cyst without abscess Category: Surgical Plan Risks, benefits, alternatives of pilonidal cyst excision were reviewed with the patient included but not limited to bleeding, infection, recurrence, numbness, pain, scarring, seroma formation, wound dehiscence and the patient wishes to proceed. Once he has been cleared medically, arrangements made for his procedure. As noted above, 07/07/2024 as scheduled for his medical evaluation. All questions answered. Coding Level of Care Code New Pt Level 5 (88025) Diagnoses Pilonidal cyst of cleft L05.91
[2024-06-12 09:59] VITALS: BP 148/80; PULSE 78; BMI 30.4
== END 2024-06-12 10:05 | disposition home or self-care (01) ==
PROVIDERS: PCP Internal Medicine; Visit Provider Surgery
DX: L05.91 Pilonidal cyst without abscess (principal)
CPT/HCPCS: 99204

== ENCOUNTER → 2024-06-12 09:51 | Outpatient (BNVA) | payer OTHER, SELFPAY | PROVIDERS: PCP Internal Medicine; Visit Provider Surgery | DX: L05.91 Pilonidal cyst without abscess (principal) | CPT/HCPCS: 99202 ==

== ENCOUNTER 2024-08-25 08:58 | Day surgery (SDC) | payer OTHER, SELFPAY ==
[2024-08-23 11:59] VITALS: BMI 29.1
--- NOTE | 2024-08-23 15:05 | HO.ANESPROP2 ---
Documented by User: Janae Paulino NP 08/23/24 15:09 HPI - Anesthesia Eval Consult details Narrative: 24yo M for Excision Pilonidal Cyst Sacrococcygeal Area PMFSH Active Problems Active Problems: All Active Problems Pilonidal cyst of juju cleft (Acute) Left thumb sprain (Acute) Left shoulder tendonitis (Acute) Sacrococcygeal pilonidal cyst with abscess (Acute) Past Medical History Medical History (Updated 08/25/24 @ 11:31 by Marta Jefferson MD) Migraines Sacrococcygeal pilonidal cyst with abscess Surgical History Surgical History (Updated 08/25/24 @ 11:33 by Marta Jefferson MD) H/O abdominal surgery History of removal of cyst (~01/07/23) Social History Social History Alcohol intake: never Patient Tobacco Use Status: Never used Tobacco Use of substances other than those prescribed or required for medical reasons: No Are you DNR?: No Advance Directives: No Advance Directives Information Provided: Yes Current occupation: right handed. Meds Allergies Allergy/AdvReac Type Severity Reaction Status Date / Time fish derived [FISH] Allergy Unknown SWELLING Verified 08/25/24 10:30 Exam Height,Weight and Vital Signs: Height 5 ft 5 in Weight 79.379 kg Assessment and Plan Assessment Anesthesia Assessment: Chart Reviewed Documented by User: Marta Jefferson MD 08/25/24 11:34 PMFSH Active Problems Active Problems: All Active Problems Pilonidal cyst of juju cleft (Acute) Left thumb sprain (Acute) Left shoulder tendonitis (Acute) Sacrococcygeal pilonidal cyst with abscess (Acute) Attempted drainage of pilonidal cyst in office Past Medical History Medical History (Updated 08/25/24 @ 11:31 by Marta Jefferson MD) Migraines Sacrococcygeal pilonidal cyst with abscess Family History Family history of problems with anesthesia: No Surgical History Surgical History (Updated 08/25/24 @ 11:33 by Marta Jefferson MD) H/O abdominal surgery History of removal of cyst (~01/07/23) History of Problems with Anesthesia: No Social History Social History Alcohol intake: never Patient Tobacco Use Status: Never used Tobacco Use of substances other than those prescribed or required for medical reasons: No Are you DNR?: No Advance Directives: No Advance Directives Information Provided: Yes Current occupation: right handed. Meds Allergies Allergy/AdvReac Type Severity Reaction Status Date / Time fish derived [FISH] Allergy Unknown SWELLING Verified 08/25/24 10:30 Exam Height,Weight and Vital Signs: Height 5 ft 5 in Weight 79.379 kg Vital Signs Temp Pulse Resp BP Pulse Ox O2 Del Method 08/25/24 10:44 98.8 F 80 16 130/79 96 Room Air Airway Mallampati Class: II TM Dist: >3cm Neck ROM: Full Loose/Missing/Broken Teeth: No (Denies broken, loose, missing teeth) Heart: RRR Lungs: CTAB Assessment and Plan Assessment Anesthesia Assessment: Anesthesia Plan Discussed and Chart Reviewed Final Anesthetic Review Family History of Problems with Anesthesia: No History of Problems with Anesthesia: No NPO: Yes ASA Class: II Final Preanesthetic Review: No Changes in Pt Med Stat, Meds/Allgs Chart Reviewed, Consent Obtained/Reviewed and Anes Risks/Benef Reviewed Patient Risk: Low Procedure Risk: Low Assessment/Block/Sedation in SS: Assess/Block/Sedation-SS Anesthetic Plan Anesthetic Plan: GA Disposition: Standard PACU
[2024-08-25] VITALS (8 sets, daily range): BP systolic 105–133; BP diastolic 58–84; PULSE 71–89; RESP 16–18; TEMP 36.1–37.1; O2SAT 93–99; BMI 29.1
[2024-08-25] MEDS: Lactated Ringers 1,000 ML 100 ML IVCONT (11:02)
--- NOTE | 2024-08-25 11:42 | P.HPSUR_ITS ---
Pre-Procedural Eval Section A - 24 Hr Update-Section A only Date of Service: 08/25/24 The patient is an INPATIENT: No Changes since office visit: No Cold of Flu in the past 2 weeks, No New Medical Problems, No Changes in Medication and No Patient answered all questions Section B - Complete if H&P > 30 days Chief Complaint: Pilonidal cyst with abscess Details of Present Illness: Has had recurrent drainage and swelling on the s acrococcygeal area Relevant Family History (Specify if Yes): No Relevant Social History: None Present Medications: see Short Stay Collaborative assessment Medical History: No relevant PMH Allergies: Allergies Allergy/AdvReac Type Severity Reaction Status Date / Time fish derived [FISH] Allergy Unknown SWELLING Verified 08/25/24 10:30 Review of Systems Sugical H&P ROS: Negative: Constitution, Cardiovascular and Respiratory Exam Surgical H&P Exam: Normal: Heart, Normal: Lungs and Normal: Abdomen Exam Comment: Multiple midline pits and a sinus in the gluteal cleft Plan Diagnosis/Plan: Unchanged I have reviewed the history and physical and performed a pertinent physical examination on my patient. No changes have occurred unless specified. Time Spent With Patient Time: Total time managing care of this patient today ____ minutes.
--- NOTE | 2024-08-25 12:23 | W.PM.OPN ---
Operative Note Operative Note Date of Service: 08/25/24 Narrative: Preop diagnosis: Pilonidal cyst, sacrococcygeal area Postop diagnosis: The same Procedure: Excision of pilonidal cyst, sacrococcygeal area Surgeon: Billy Iverson MD nursing home assistant administrator: ANGE Garcia The patient is a 24-year-old male with an area recurrent swelling and discharge in the sacrococcygeal region consistent with a pilonidal cyst. He understood the technique of excision under anesthesia. He was aware of the risks, benefits, and alternatives He was brought to the operating room. He was placed in prone position under general anesthesia via endotracheal tube. The buttocks were retracted with wide tape laterally. The sacrococcygeal area was prepped and draped in the usual sterile fashion. A surgical time-out was done. The patient received cefazolin 2 g IV preoperatively There was note of an area of induration with a sinus and midline pits in the gluteal cleft. I infiltrated the area with lidocaine 1%. I made an incision on the skin in elliptical fashion surrounding this area of induration using blade 15. This was carried down through the full-thickness of the skin and subcutaneous fat using electrocautery to excise this entire indurated and disease area. The area excised was about 6 cm x 3 cm in dimension I cauterized oozing areas. Once hemostasis was confirmed, I irrigated. I reapposed deep subcutaneous tissue with Polysorb 3-0 simple interrupted sutures. The subdermal layer was reapposed with Polysorb 3-0 simple interrupted sutures as well. Skin closure was achieved with nylon 3-0 simple interrupted sutures alternating with vertical mattress sutures. The area was then infiltrated with Marcaine 0.5% for postop analgesia. Dressings were applied. The procedure was completed The patient tolerated the procedure well. There were no immediate complications. Initial and final counts of sponges and instruments were correct. Estimated blood loss was about 30 cc. The patient was extubated without difficulty and transferred to the recovery room with stable vital signs.
== END 2024-08-25 14:00 | disposition home or self-care (01) ==
PROVIDERS: Visit Provider Surgery
PROC: (CPT 11771; principal; 2024-08-25 12:10)
DX: L05.01 Pilonidal cyst with abscess (principal); G43.909 Migraine, unspecified, not intractable, without status migrainosus; Z79.899 Other long term (current) drug therapy; Z79.1 Long term (current) use of non-steroidal anti-inflammatories (NSAID); Z98.890 Other specified postprocedural states
CPT/HCPCS: 11771; 88304; J0131; J0330; J0690; J1100; J1596; J1885; J2003; J2250; J2405; J2704; J2795; J3010

== ENCOUNTER → 2024-08-25 08:58 | Outpatient (BNV) | payer OTHER, SELFPAY | PROVIDERS: Visit Provider Surgery | DX: L05.01 Pilonidal cyst with abscess (principal) | CPT/HCPCS: 11771 ==

== ENCOUNTER 2024-09-07 11:07 | Outpatient (AMB) | payer OTHER, SELFPAY ==
--- NOTE | 2024-09-07 11:08 | MHC.OFFVIS ---
Intake Visit Reasons: S/P exc. pilonidal cyst Intake Note: This patient presents for post-op assessment status post excision pilonidal cyst. Pt c/o; reports no complaints. Seat Cover Installer Required: No Accompanied by: Self / Same As Patient Allergies fish derived [FISH] Allergy (Unknown, Verified 09/07/24 11:12) SWELLING HPI HPI S/P exc. pilonidal cyst: Details: He underwent excision of a pilonidal cyst from the sacrococcygeal area last 08/25/2024. He tolerated the procedure well. He currently denies significant complaints. [facility] Medical History Migraines Sacrococcygeal pilonidal cyst with abscess Surgical History History of surgical removal of pilonidal cyst (~08/25/24) H/O abdominal surgery History of removal of cyst (~01/07/23) Social History Alcohol intake: never Patient Tobacco Use Status: Never used Tobacco Current occupation: right handed. Review of Systems Const Denies chills and Denies fever(s) Card Denies chest pain, Denies dyspnea and Denies dyspnea on exertion Resp Denies cough, Denies dyspnea and Denies dyspnea on exertion GI Denies hematochezia and Denies change in bowel habits Denies hematuria and Denies difficulty urinating Musc Denies back pain and Denies limited range of motion Neuro Denies focal weakness and Denies convulsions Psych Denies depression and Denies mood swings Physical Exam Const General: comfortable and no acute distress Resp Effort & Inspection: normal respiratory effort Back/Spine/Pelvis Other: Excision site clean, dry, not infected, healing well sutures intact Assessment & Plan Assessment & Plan (1) Sacrococcygeal pilonidal cyst with abscess: Code(s): L05.01 - Pilonidal cyst with abscess Category: Medical Plan: Status post excision. He is doing very well. His incision is well healed. I removed all his sutures. I applied Steri-Strips He can follow up on a p.r.n. basis. His path report shows pilonidal disease. Coding Level of Care Code Global (01601) Diagnoses Sacrococcygeal pilonidal cyst with abscess L05.01
--- OUTSIDE RECORDS SUMMARY | 2024-09-07 14:19 | XMS_ITS | Clinical Summary ---
Author Organization [facility] [address] [place] [address] [place] [address] Phone Care Team Providers Care Acetylene Torch Solderer Name Role Phone Gaetano Bautista MD Primary Care Provider [phone] Allergies Active Allergy Reactions Criticality Noted Date Comments Fish Containing Products 04/29/2010 Developed rash Medications albuterol HFA (ProAir HFA) 90 mcg/actuation inhaler Inhale 2 Puffs into the lungs 4 times daily as needed for Cough or Wheezing. 08/24/2019 Active ibuprofen (ADVIL,MOTRIN) 800 mg tablet Take 1 tablet (800 mg total) by mouth 3 (three) times a day if needed for headaches. 90 tablet 1 07/07/2024 Active Active Problems Problem Noted Date Diagnosed Date Childhood asthma 05/24/2024 Migraine without status migrainosus, not intract able 02/26/2017 Known medical problems 05/13/2011 Overview (05/24/2024): Not getting good grades, 05/13/11 discipline issues, Will have IEP 05/09 regular classes good grades Phimosis 04/29/2010 Overview (05/24/2024): Seen by ped surg 05/28/10, circ scheduled but then decided with mother just to observe Encounters Date Type Department Care Team Description 07/07/2024 12:00 PM EST Office Visit Adult Medicine [facility] [address] [place], [place] [phone] Penelope Vieyra PA Routine history and physical examination of adult (Primary Dx); Acne, unspecified acne type; Migraine without status migrainosus, not intractable, unspecified migraine type; Pilonidal cyst 07/07/2024 Telephone Adult Medicine [address] [phone] Gaetano Bautista MD Forms/questionnaires from Last 3 Months Immunizations Name Administration Dates Next Due DTaP (Infanrix) 6wks to less than 7yo ,05/13/2000,05/16/1999,01/24,1998 [id number] (Pentacel) 2mo to less than 5yo 10/28/1999,05/16/1999,01/24/1999,11/05 H1N1 Inj Preservative Free 06/06/2009 HPV, Quadrivalent 09/12/2013 Hepatitis B Pediatric (Enger ix B; Recombivax HB) to less than 20 yo 06/14/1999,05/16/1999,1998 IPV Inactivated polio (Ipol) 6wks and older 01/29/2004,02/01/1999,01/24/1999,11/05 Influenza trivalent, 0.5mL, preservative free (Fluarix; FluLaval; Fluzone) ages 6mo and older (Afluria) 3 years and older 05/24/2012 MMR, measles mumps and rubel la Live (Priorix; M-M-R II) 12mo and older 08/03/2002,10/28/1999 Meningococcal MCV4P 05/13/2011 Pneumococcal Conjugate Vacci ne, 7 Valent 05/14/2003 Tdap Tetanus diptheria acell ular pertussis (Boostrix; Adacel) 7yo and older 04/29/2010 Varicella live (Varivax) 12m o and older 08/31/2008,10/28/1999 Surgical History Surgery Date Site/Laterality Comments OTHER SURGICAL HISTORY 5 w PROCEDURE: HISTORICAL PYLOROTOMY Medical History Medical History Date Comments Phimosis 04/29/2010 DX:Phimosis Pyloric stenosis DX:Pyloric sten osis; COMMENT: s/p surgery Allergic rhinitis DX:Allergic rh initis Childhood asthma DX:Childhood as thma Family History Medical History Relation Name Comments Other: healthy Father Other: healthy Mother Relation Name Status Comments Brother 1 Alive Brother 2 Alive Brother 3 Alive Father Alive Mother Alive kamran cadena Sister 1 Alive yoav nelson Sister 2 Alive conner philip Sister 3 Alive Sister 4 Alive Social History Tobacco Use Types Packs/Day Years Used Date Smoking Tobacco: Never Smokeless Tobacco: Never Alcohol Use Standard Drinks/Week Comments No 0 (1 standard drink = 0.6 oz pur e alcohol) Sex and Gender Information Value Date Recorded Sex Assigned at Not on file Legal Sex Male 11:37 PM EST Gender Identity Not on file Sexual Orientation Not on file 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 Not on file Not on file Not on file Obstetrics History Last Filed Vital Signs Vital Sign Reading Time Taken Comments Blood Pressure 130/60 07/07/2024 11:47 AM EST Pulse 78 07/07/2024 11:47 AM EST Temperature 36.7 ??C (98 ??F) 07/07/2024 11: 47 AM EST Respiratory Rate - - Oxygen Saturation 98% 07/07/2024 11: 47 AM EST Inhaled Oxygen Concentration - - Weight 83.3 kg (183 lb 11.2 oz) 025 11:47 AM EST Height - - Body Mass Index - - Plan of Treatment Upcoming Encounters Date Type Department Care Team (Late st Contact Info) Description 07/11/2025 9:00 AM EST Office Visit Adult Medicine [address] [phone] Gaetano Bautista MD [address] [place] [phone] Health Maintenance Due Date Last Done Comments Hepatitis B Vaccines (4 of 4 - 4-dose series) 07/11/1999 06/14/1999, 05/16/1999, 1998 Pneumococcal Vaccine: Pediatrics (0 to 5 Years) and At-Risk Patients (6 to 64 Years) (2 of 2 - PPSV23) 2004 05/14/2003 HPV Vaccines (2 - Male 3-dose series) 10/10/2013 09/12/2013 COVID-19 Vaccine ( season) 2024 HIV Screening 05/24/2024 Hepatitis C Screening 05/24/2024 Depression Screening 07/07/2025 07/07/2024 Social Influencers of Health Screening 07/07/2025 07/07/2024 HIB Vaccines Completed 10/28/1999, 04/28, 01/24/1999, Additional history exists MMR Vaccines Completed 08/03/2002, 10/28/1999 IPV Vaccines Completed 01/29/2004, 07/1999, 05/16/1999, Additional history exists Varicella Vaccines Completed 08/31/2008, 10/28/1999 DTaP,Tdap,and Td Vaccines Discontinued 2009, 01/29/2004, 05/13/2000, Additional history exists Meningococcal ACWY Vaccine Aged Out 05/13/2011 N o longer eligible based on patient's age to complete this topic Influenza Vaccine Discontinued 05/24/2012, 06/06/2009 Hepatitis A Vaccines Aged Out No long er eligible based on patient's age to complete this topic Meningococcal B Vacine Aged Out No lo nger eligible based on patient's age to complete this topic RSV Immunization Patients Under 20 months Aged Out No longer eligible based on patient's age to complete this [place] [address] Care Teams Acetylene Torch Solderer Relationship Specialty Start Date End Date Gaetano Bautista MD [address] [place] [phone] PCP - General Internal Medicine 03/05/21
== END 2024-09-07 11:16 | disposition home or self-care (01) ==
LOC: HO.HGS 11:07
PROVIDERS: PCP Internal Medicine; Visit Provider Surgery
DX: L05.01 Pilonidal cyst with abscess (principal)
CPT/HCPCS: 99024

== ENCOUNTER → 2024-09-07 11:07 | Outpatient (BNVA) | payer OTHER, SELFPAY | PROVIDERS: PCP Internal Medicine; Visit Provider Surgery | DX: Z09 Encounter for follow-up examination after completed treatment for conditions other than malignant neoplasm (principal); Z87.2 Personal history of diseases of the skin and subcutaneous tissue; Z98.890 Other specified postprocedural states | CPT/HCPCS: 99212 ==